=== PATIENT | female | born 1950 | race Caucasian/White ===

== ENCOUNTER 2018-05-22 10:13 | Emergency (ER) | payer MEDICARE, OTHER, SELFPAY ==
[2018-05-22 10:23] VITALS: BP 181/82; PULSE 65; RESP 18; TEMP 36.9; O2SAT 99
[2018-05-22 10:29] VITALS: BP 168/79; PULSE 60; RESP 14; O2SAT 99
--- NOTE | 2018-05-22 10:34 | DI.CT.S_ITS ---
PROCEDURE: CT HEAD/BRAIN WO CON INDICATIONS: resolved r arm and leg weakness TECHNIQUE: Noncontrast 4.5 mm thick angled axial sections acquired from the foramen magnum to the vertex, with coronal and sagittal reformats. For radiation dose reduction, the following was used: automated exposure control, adjustment of mA and/or kV according to patient size. COMPARISON: None. FINDINGS: Image quality: Excellent. CSF spaces: Basal cisterns are patent. No extra-axial fluid collections. The ventricles are symmetric in size and shape. Brain: No intracranial bleeds or masses. There is cerebral volume loss for age, with resultant ventricular and sulcal prominence. There are periventricular and deep white matter chronic small vessel ischemic changes. There is intracranial internal carotid artery atherosclerosis. Skull and face: Calvarium and visualized facial bones appear intact, without suspicious lesions. Sinuses: Visualized sinuses and mastoids are clear. IMPRESSION: 1. No acute intracranial process. 2. Minimal atrophy and chronic microvascular ischemic changes. Dictated by: Xenia Beard M.D. on 05/22/2018 at 11:04 Approved by: Xenia Beard M.D. on 05/22/2018 at 11:05
[2018-05-22] MEDS: SODIUM CHLORIDE 0.9% 1,000 ML 1000 ML IV (11:05)
[2018-05-22] MEDS: ACETAMINOPHEN 325 MG TABLET 975 MG PO (11:10)
[2018-05-22] MEDS: MAGNESIUM SULFATE 2 GM/50 ML PIGGYBACK IV (11:10)
[2018-05-22 11:11] VITALS: BP 159/88; PULSE 80
[2018-05-22] MEDS: PROCHLORPERAZINE 10 MG/2 ML VIAL IV (11:11)
[2018-05-22] MEDS: PROPARACAINE 0.5% OPHTH SOL 1 DROPS EYE-BOTH (11:11)
[2018-05-22 11:18] VITALS: BP 138/86; PULSE 80; RESP 14; O2SAT 99
[2018-05-22 11:21] LABS: Add Manual Diff / Slide Review NO; Basophils Percent Auto 1.4 % (0-2); Eosinophils Percent Auto 2.8 % (2-4); Hematocrit 40.8 % (36-46); Hemoglobin 13.9 g/dL (12.0-16.0); Lymphocytes Percent Auto 33.6 % (25-40); Mean Corpuscular Volume 94.2 fL (80-100); Monocytes Percent Auto 12.4 % (3-14); Neutrophils Absolute Auto 2600 /uL (3000-5900); Neutrophils Percent Auto 49.8 % (50-75); Platelet Count 286 X10^3/uL (150-400); Red Blood Cell Count 4.33 X10^6/uL (4.0-5.2); Red Cell Distribution Width 12.6 % (11.6-14.8); White Blood Cell Count 5.1 X10^3/uL (4.5-11.0)
[2018-05-22 12:09] LABS: BUN Creatinine Ratio 23.8 (6-22); Blood Urea Nitrogen 19 mg/dL (7-17); Calcium 9.3 mg/dL (8.4-10.2); Carbon Dioxide 29 mmol/L (22-32); Chloride 102 mmol/L (98-107); Estimated Glomerular Filt Rate > 60.0 mL/min (>60); Glucose 143 mg/dL (80-110); HEMOLYSIS < 15 (0-50); Potassium 4.7 mmol/L (3.4-5.1); Sodium 140 mmol/L (137-145)
[2018-05-22 12:30] VITALS: BP 157/67; PULSE 64; RESP 16; O2SAT 95
--- NOTE | 2018-05-22 13:43 | ED_ITS ---
HPI - Neuro Symptoms/Deficit General Chief Complaint: Neuro Symptoms/Deficit Stated Complaint: headache,dizziness,blurred vision Time Seen by Provider: 05/22/18 10:16 History of Present Illness HPI Narrative: HPI 68-year-old female with a history of glaucoma presents for evaluation of a sudden onset right sided retro-ocular headache that is new in nature and began approximately one hour [employer]. * Denies changes in vision or hearing, fevers, neck stiffness, rashes, neck pain , temporal pain, jaw pain with chewing, dental pain, minor neck trauma, chiropractic manipulation, or head trauma. * Denies anticoagulation or hypercoaguable history. * No family members with similar symptoms. Unable to identify any higher risk exposures to possible carbon monoxide. M/S/F/SocHx notable for: please see HPI; remainder reviewed with patient and in chart. ROS: Negative constitutional, eye, cardiovascular, pulmonary, GI, , MSK, skin , neurologic, psychiatric, endocrine unless noted in the HPI. Exam Gen: Pleasant, non-toxic appearing, resting in mild discomfort.. HEENT: NC, AT, TMs clear bilaterally without effusions, erythema, or lesions, preauricular, pinna, and external canal skin without lesions. Dentition intact without visible caries. No frontal or maxillary sinus TTP. Temples without TTP bilaterally. No paraspinal posterior neck pain. Mild right ocular injection. Right intraocular pressure 21 mmHg, left intraocular pressure 20 mmHg. no pain with direct or consensual photo stimulation. Resp: CTAB Card: RRR GI: NT/ND : Deferred MSK: No visible deformities, strength and tone WNL. Skin: Normal color with no visible lesions. Neuro: Gen AO x 3, no facial asymmetry, no gaze preference, no slurring of speech. CN II-III: pupils equal and reactive (3->2mm bilaterally); III, IV, : EOMI, V1-V3: sensation to touch bilaterally intact; VII: no facial asymmetry ( frown / smile); VIII: no nystagmus; X: phonation intact, uvula midline; XI: trapezius 5/5 bilaterally, XII: tongue midline. Psych: Mood and affect appropriate. Labs / Imaging (pertinent): WBC 5.1, HB 13.9, sodium 140, K 4.7 CT head: no acute intracranial abnormality. MDM Previous chart, nursing note, and vitals reviewed. A: 68-year-old female with a history of glaucoma presents for evaluation of a sudden onset right sided retro-ocular headache that is new in nature and began approximately one hour [employer]. DDx: migraine / tension headache, cluster headache, sentinel bleed/SAH, infection ([employer] vs CLEMENTE secondary to non-[employer] focal infection), tumor/mass effect, hypertensive encephalopathy, glaucoma or iritis, idiopathic intracranial hypertension, cavernous sinus thrombosis, temporal arteritis. Evaluation: * Migraine / tension headache - suspect a migraine headache versus cluster headache given the relative exclusion of the remainder the differential.. * Cluster - cluster headache remains on the differential given the largely unilateral retro-ocular pain. * [place] bleed/SAH - patient was sudden in onset, CT head within 6 hours of onset without evidence of abnormality. Discussion was had with the patient regarding the small possibility of a missed diagnosis, patient was informed of the risks and benefits, and the patient declined further evaluation. * Infection - Given lack of rash, meningismus, or fever; doubt meningitis. Similarly the history and exam are without evidence of acute otitis media, sinusitis, dental abscesses or clinically significant dental caries. * Mass - no evidence by imaging. * Hypertensive encephalopathy - BP within the brain's autoregulatory zone. * Glaucoma or iritis - no evidence by absence of significant ocular discomfort, pain on direct or consensual photo stimulation, and normal intraocular pressures. * Idiopathic Intracranial Hypertension - unlikely given the lack of visual symptoms, short duration of symptoms, lack of worsening with valsalva, or more prominent morning symptoms. * Thrombosis - given the lack of identifiable risk factors (preceding facial infection, fever, and hypercoagulability) as well as an absence of deficits on exam doubt both cavernous and venous sinus thrombosis. * Temporal Arteritis - given lack of temporally localized headache, temporal tenderness or decreased temporal artery pulse, absent history of jaw claudication or vision changes; doubt. ED Course: Compazine, acetaminophen, magnesium, and normal saline given with resolution of headache. Disposition: discharge with PCP follow-up recommended. Return to care precautions provided. Impression: headache (please reference below for remainder of encounter information) On Anticoagulants: Yes (ASA 81 mg qd) Related Data Home Medications Medication Instructions Recorded Confirmed ascorbic acid (vitamin C) [Vitamin 1,000 mg PO DAILY 05/22/18 05/22/18 C] aspirin [Aspir-81] 81 mg PO DAILY 05/22/18 05/22/18 azelastine 1 drp EYE-BOTH BID 05/22/18 05/22/18 calcium carbonate [Calcium 500] 500 mg PO BID 05/22/18 05/22/18 cholecalciferol (vitamin D3) 1,000 unit PO BID 05/22/18 05/22/18 [Vitamin D3] fexofenadine [Yane Allergy] 60 mg PO DAILY 05/22/18 05/22/18 flaxseed oil 1,000 mg PO BID 05/22/18 05/22/18 flaxseed oil 1,000 mg PO DAILY 05/22/18 05/22/18 gemfibrozil 600 mg PO BID 05/22/18 05/22/18 levothyroxine 137 mcg PO DAILY 05/22/18 05/22/18 montelukast 10 mg PO DAILY 05/22/18 05/22/18 multivitamin 1 tab PO DAILY 05/22/18 05/22/18 ranitidine HCl 150 mg PO BID 05/22/18 05/22/18 Allergies Allergy/AdvReac Type Severity Reaction Status Date / Time amoxicillin [From Augmentin] AdvReac Intermediate Nausea Verified 05/22/18 10:29 clavulanic acid AdvReac Intermediate Nausea Verified 05/22/18 10:29 [From Augmentin] [facility] Medical History Glaucoma (Acute) Graves disease (Acute) Hyperlipidemia (Acute) Lactose intolerance (Acute) Multiple allergies (Acute) Surgical History History of cholecystectomy (Acute) History of trabeculectomy (Acute) Hx of breast reduction, elective (Acute ~2008) Social History Smoking Status: Never smoker Exam Initial Vital Signs Initial Vital Signs: Vital Signs Temperature 98.4 F 05/22/18 10:23 Pulse Rate 65 05/22/18 10:23 Respiratory Rate 18 05/22/18 10:23 Blood Pressure 181/82 H 05/22/18 10:23 Pulse Oximetry 99 05/22/18 10:23 Course Orders Ordered: ED Orders 05/22/18 10:34 CT head/brain wo con Stat 05/22/18 11:00 Complete Blood Count AUTO DIFF Stat 05/22/18 11:44 Basic Metabolic Panel Stat Discontinued Medications Acetaminophen (Tylenol) 975 mg PO NOW ONE Stop: 05/22/18 10:35 Last Admin: 05/22/18 11:10 Dose: 975 mg Magnesium Sulfate (Magnesium Sulfate) 2 gm in 50 mls @ 25 mls/hr IV NOW ONE Stop: 05/22/18 12:33 Last Infusion: 05/22/18 13:05 Dose: 25 mls/hr Admin: 05/22/18 11:10 Dose: 25 mls/hr Sodium Chloride (Normal Saline 0.9%) 1,000 mls @ 1,000 mls/hr IV BOLUS ONE Stop: 05/22/18 11:33 Last Infusion: 05/22/18 13:06 Dose: 1,000 mls/hr Admin: 05/22/18 11:05 Dose: 1,000 mls/hr Prochlorperazine (Compazine) 10 mg IV NOW ONE Stop: 05/22/18 10:35 Last Admin: 05/22/18 11:11 Dose: 10 mg Proparacaine HCl (Parcaine 0.5% Ophth Juju) 1 drops EYE-BOTH NOW ONE Stop: 05/22/18 10:36 Last Admin: 05/22/18 11:11 Dose: 1 drop Vital Signs - 8 hr 05/22/18 10:23 05/22/18 10:29 05/22/18 11:11 Temperature 98.4 F Pulse Rate 65 60 80 Respiratory Rate 18 14 Blood Pressure 181/82 H 159/88 H Blood Pressure [Left Arm] 168/79 H Pulse Oximetry 99 99 05/22/18 11:18 05/22/18 12:30 Temperature Pulse Rate 80 64 Respiratory Rate 14 16 Blood Pressure Blood Pressure [Left Arm] 138/86 H 157/67 H Pulse Oximetry 99 95 MDM - Neuro Symptoms/Deficit Lab Data Result diagrams: 05/22/18 11:00 05/22/18 11:44 Lab Results 05/22/18 05/22/18 Range/Units 11:00 11:44 WBC 5.1 (4.5-11.0) X10^3/uL RBC 4.33 (4.0-5.2) X10^6/uL Hgb 13.9 (12.0-16.0) g/dL Hct 40.8 (36-46) % MCV 94.2 (80-100) fL MCH 32.0 (26-34) PG MCHC 34.0 (30-36) % RDW 12.6 (11.6-14.8) % Plt Count 286 (150-400) X10^3/uL Neut % (Auto) 49.8 L (50-75) % Lymph % (Auto) 33.6 (25-40) % Dougherty % (Auto) 12.4 (3-14) % Eos % (Auto) 2.8 (2-4) % Baso % (Auto) 1.4 (0-2) % Neut # (Auto) 2600 L (0829-8425) /uL Sodium 140 (137-145) mmol/L Potassium 4.7 (3.4-5.1) mmol/L Chloride 102 (98-107) mmol/L Carbon Dioxide 29 (22-32) mmol/L BUN 19 H (7-17) mg/dL Creatinine 0.80 (0.52-1.04) mg/dL Estimated GFR > 60.0 (>60) mL/min BUN/Creatinine Ratio 23.8 H (6-22) Glucose 143 H (80-110) mg/dL Calcium 9.3 (8.4-10.2) mg/dL Discharge Plan Departure Prescriptions: No Action multivitamin Tablet 1 tab PO DAILY RF: 0 levothyroxine 137 mcg tablet 137 mcg PO DAILY RF: 0 azelastine 0.05 % drops 1 drp EYE-BOTH BID RF: 0 calcium carbonate [Calcium 500] 500 mg calcium (1,250 mg) Tablet 500 mg PO BID RF: 0 montelukast 10 mg tablet 10 mg PO DAILY RF: 0 ascorbic acid (vitamin C) [Vitamin C] 1,000 mg Tablet 1,000 mg PO DAILY RF: 0 fexofenadine [Yane Allergy] 60 mg Tablet 60 mg PO DAILY RF: 0 aspirin [Aspir-81] 81 mg Tablet,Delayed Release (Dr/Ec) 81 mg PO DAILY RF: 0 flaxseed oil 1,000 mg Capsule 1,000 mg PO BID RF: 0 flaxseed oil 1,000 mg Capsule 1,000 mg PO DAILY RF: 0 gemfibrozil 600 mg Tablet 600 mg PO BID RF: 0 ranitidine HCl 150 mg Capsule 150 mg PO BID RF: 0 cholecalciferol (vitamin D3) [Vitamin D3] 1,000 unit Capsule 1,000 unit PO BID RF: 0
--- NOTE | 2018-05-22 13:43 | PC.NURSE ---
Pt. taken off monitor and IV d/c. Awaiting MD discharge with 12/11 CLEMENTE, denies needs other than d/c
[2018-05-22 13:49] VITALS: BP 152/67; PULSE 63; RESP 16; TEMP 36.3; O2SAT 99
== END 2018-05-22 13:45 | disposition home or self-care (01) ==
PROVIDERS: Emergency Provider Emergency Medicine
DX: R51 Headache (principal)
CPT/HCPCS: 36591; 70450; 80048; 85025; 96365; 96366; 96375; 99283; 99284; 99291; J0780